=== PATIENT | female | born 1985 | race African-American/Black ===

== ENCOUNTER 2025-03-05 10:28 | Outpatient (AMB) | payer OTHER, SELFPAY ==
--- NOTE | 2025-03-05 10:30 | A.OFFPC_ITS ---
Vital Signs 03/05/25 10:37 Height 5 ft 4.96 in Weight 156 lb BMI 26.0 BP 127/84 Blood Pressure Location Lt brachial Position Sitting Pulse 71 Pulse Source Pulse Oximeter Temp 98.1 F Temp Source Oral Pulse Oximetry (%) 98 Oxygen Delivery Method Room Air Intake Visit Reasons: [employer]-stomach issue Intake Note: Has had back pain. Also having episodes of nausea. Just finished menstrual cycle Accompanied by: Self / Same As Patient Allergies No Known Allergies Allergy (Verified 03/05/25 10:30) Medication List - Last Reconciled 03/05/25 by Korey Sanchez MD ondansetron 2 mg PO Q6-8H PRN Tobacco use date assessed: 03/05/25 Dental Screening Dental Screen Date: 03/05/25 Did you have a dental visit in the last 12 months?: Yes HPI HPI Comments History of Present Illness Details History of Present Illness The patient is a 39-year-old female presenting to [facility] care and for evaluation of back pain and nausea. Chronic Low Back Pain: The patient reports chronic lower back pain for the last six months to a year, occurring at least twice a week. She describes the pain as an aching sensation that sometimes radiates to one leg, feeling like a cramp. She has no history of specific injury but sits at a desk frequently. Stretching provides some relief, and she does not take any medication for the pain. She speculates her large breasts may contribute to the pain. Nausea: The patient experiences occasional nausea, which she denies is related to . She attributes the nausea to her irregular diet and drinking alcohol on an empty stomach to help her sleep. Right Flank Lump: She has a lump on her right flank that has been present for approximately a year and a half. One urgent care provider suggested it was a type of rib, while anot her recommended an ultrasound. Left Elbow Pain: The patient has a history of a left elbow fracture some years ago. She reports she did not complete physical therapy and continues to feel that the elbow is weak and occasionally painful. Insomnia and Alcohol Use: The patient reports difficulty sleeping and uses alcohol as a sleep aid to fall asleep more quickly. She states she drinks to wind down and is trying to cut back on her alcohol consumption. Surgical History: - No surgical history reported. Medications: - The patient is not currently taking an y prescribed medications. 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 - Housing: Lives in an apartment in [facility] and is saving money to move into a house. - Family Status: Has one 16-year-old son . - Substance Use: Smokes marijuana occasi onally since she was a teenager. Denies cigarette smoking. Drinks alcohol to help her fall asleep and is trying to cut back. Denies other illicit drug use. - Nutrition: Reports an 'off and on' t, preferring vegetables and meat over starches. Sometimes skips meals due to her work schedule. - Exercise: Currently does not have a fo rmal exercise routine but tries to stretch for her back pain and expresses a desire to become more active. Family History: - Mother is as of 2021 from [facility]. - No known family history of cancer. Past Medical History - Left elbow fracture several years ago, with incomplete physical therapy. - Hospitalization for childbirth. Health Maintenance - The patient is establishing care and u ndergoing a complete physical examination. - Pap smear is up to date. - Discussed desire to improve health by becoming more active, working out, and reducing alcohol intake. COUNTS INCLUDE 234 BEDS AT THE [facility] Family History (Updated 03/05/25 @ 10:37 by Amarilys Barboza CMA) Mother No problems noted. Father No problems noted. Social History (Updated 03/05/25 @ 10:32 by Amarilys Barboza [facility]) Housing: Apartment Alcohol intake: current Patient Tobacco Use Status: Never used Tobacco e-Cigarette/Vaping Use: Never Used service: No Current occupational status: employed Cognitive needs: No Hearing needs: No Vision needs: No Questionnaire PHQ-9 Over the last 2 weeks, how often have you been bothered by any of the following problems? 1. Little interest or pleasure in doing things: several days 2. Feeling down, depressed, or hopeless: not at all 3. Trouble falling or staying asleep, or sleeping too much: several days 4. Feeling tired or having little energy: several days 5. Poor appetite or overeating: not at all 6. Feeling bad about yourself - or that you are a failure or have let yourself or your family down: not at all 7. Trouble concentrating on things, such as reading the newspaper or watching television: not at all 8. Moving or speaking so slowly that other people could have noticed. Or the opposite - being so fidgety or restless that you have been moving around a lot more than usual: not at all 9. Thoughts that you would be better off or of hurting yourself in some way: not at all Total score: 3 Depression Screening Interpretation: Negative Depression Screening Done: Yes Source: Developed by Drs. Justo Duenas, Lily Mcguire, Anival Ken and colleagues, with an educational morgan from [employer]. Thrive Questionnaire Date Thrive assessed: 03/05/25 I am a: Patient What is your living situation today?: I have a steady place to live Within the past 12 months, did the food you bought not last and you didn't have the money to get more?: Often true Within the past 12 months, did you worry whether your food would run out before you got money to buy more?: Never true Do you have trouble paying for medicines?: I choose not to answer this question Do you have trouble getting transportation to medical appointments?: No Do you have trouble paying your heating and electricity bill?: No Do you have trouble taking care of your child, family member or friend?: No Are you currently unemployed and looking for a job?: No Are you interested in more education?: No Please select the resources that you would like help with: Paying for medicine Currently or been in a relationship where the following occur: No concerns reported THRIVE Score: 1 AUDIT C Alcohol Use Questionnaire (AUDIT-C) 1. How often do you have a drink containing alcohol?: Monthly or less 2. How many drinks containing alcohol do you have on a typical day when you are drinking?: 1 or 2 3. How often do you have six or more drinks on one occasion?: Less than monthly Total Score: 2 MARIANNE-7 AMB Questionnaire MARIANNE-7 Date MARIANNE - 7 assessed: 03/05/25 Feeling nervous, anxious, or on edge: 0 = Not at all Not being able to stop or control worryin = Not at all Worrying too much about different things: 0 = Not at all Trouble relaxin = Not at all Being so restless that it is hard to sit still: 0 = Not at all Becoming easily annoyed or irritable: 0 = Not at all Feeling afraid as if something awful might happen: 0 = Not at all Total MARIANNE-7 score (0-4 normal; 5-9 mild; 10-14 moderate; 15-21 severe): 0 Source: Developed by Drs. Justo Duenas, Lily Mcguire, Anival Ken and colleagues, with an educational morgan from [employer]. Review of Systems Narrative Review of Systems - Constitutional: Reports fatigue related to working two jobs. - Gastrointestinal: Reports occasional nausea. Denies reflux. - Musculoskeletal: Reports chronic lower back pain, described as aching and sometimes radiating. Reports a palpable lump on the right flank. Reports left elbow weakness and occasional pain. - Neurological: Denies specific neurological deficits, although back pain sometimes radiates like a cramp. - Genitourinary: Reports regular menses. Denies use of control. Confirms her Pap smear is up to date. - Psychiatric: Reports difficulty sleeping and uses alcohol as a sleep aid. - General: Denies swelling in her legs. 10-point ROS reviewed and negative except as noted in HPI Physical exam (Primary Care) Vital Signs: Last Vital Signs Temp 98.1 F 03/05/25 10:37 Pulse 71 03/05/25 10:37 BP 127/84 03/05/25 10:37 Pulse Ox 98 03/05/25 10:37 Oxygen Delivery Method Room Air 03/05/25 10:37 BMI result Body Mass Index 26.0 Tobacco/Smoking Status: Tobacco use Status Tobacco use date assessed 03/05/25 03/05/25 10:32 Patient Tobacco Use Status Never used Tobacco 03/05/25 10:32 e-Cigarette/Vaping Use Never Used 03/05/25 10:32 PHQ-9: PHQ-9 Score PHQ-9: Total score 3 03/05/25 10:32 Depression Screening Interpretation: Negative Thrive Assessment: Date of Thrive Assessment Date Thrive assessed 03/05/25 03/05/25 10:32 Currently or been in a relationship where the following occur: No concerns reported Narrative Physical Exam General: Well-appearing, in no acute distress. Appears tired due to working two jobs and experiencing chronic back pain and nausea. Vital signs: Within normal limits. HEENT: Normocephalic, atraumatic. PERRLA, EOMI. Conjunctiva clear, sclera anicteric. Oropharynx clear, mucous membranes moist. TMs intact bilaterally. Neck: Supple, no lymphadenopathy, no thyromegaly, no JVD or carotid bruits. Cardiovascular: RRR, normal S1/S2, no murmurs, rubs, or gallops. Peripheral pulses 2+ and symmetric. No edema. Respiratory: Lungs clear to auscultation bilaterally, no wheezes, rales, or rhonchi. Normal effort. Abdomen: Soft, non-tender, non-distended. Normoactive bowel sounds. No hepatosplenomegaly, no masses. Reports occasional nausea, possibly related to diet and alcohol consumption. MSK: Full range of motion, no joint swelling or deformity. Normal gait. Reports chronic low back pain, possibly related to breast size, and weakness in the left elbow due to previous fracture. palpable deformity on right laft flank Skin: Warm, dry, intact. No rashes, lesions, or pallor. Reports a lump on the right flank, present for about a year and a half. Neuro: Alert and oriented x3. Cranial nerves II-XII intact. Strength 5/5 throughout. Sensation intact. Reflexes 2+ symmetric. Normal coordination and gait. Psych: Appropriate mood and affect. Normal judgment and insight. Reports using alcohol to aid sleep and occasional marijuana use. Considering therapy for sleep issues and stress management. Office Procedures Flu Questionnaire Does the patient have a severe egg allergy?: No Does the patient have severe life threatening allergies?: No Does the patient have a fever or illness today?: No Has the patient ever had Guillain-Hadley Syndrome?: No Has the patient ever had any past reaction to a flu shot?: No Immunizations Fluarix [id number] (PF) 45 mcg (15 mcg x 3)/0.5 mL IM syringe Performing Provider: Korey Sanchez MD [place] [facility] [place] [facility] Documented (not given) by: Amarilys Barboza CMA on 03/05/25 10:41 Reason Not Given: Patient Refused Coding Level of Care Code New Pt Level 4 (39232) Add On Problem Visit Only Diagnoses Chronic low back pain with left-sided sciatica M54.42; G89.29 Left elbow pain M25.522 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 Nausea R11.0 Insomnia G47.00 Alcohol use F10.90 Assessment & Plan Assessment & Plan (1) Chronic low back pain with left-sided sciatica: Code(s): M54.42 - Lumbago with sciatica, left side; G89.29 - Other chronic pain Category: Medical (2) Left elbow pain: Code(s): M25.522 - Pain in left elbow Category: Medical (3) 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 Referrals to physical therapy for her back and elbow were reviewed. Recommendations for managing nausea and options for addressing sleep difficulties, including a sleep study and behavioral health referral, were also discussed. Patient was informed and verbally consented to the use of an ambient scribe for clinic note documentation during this visit. Plan 1. Chronic Low Back Pain - Referral will be placed for physical therapy to strengthen the back. - Discussed that if there is no improvement with physical therapy, a breast reduction could be considered as a future option, given the patient's concern that her breasts might be a contributing factor. 2. Nausea - The nausea is likely attributed to diet and alcohol consumption without food. - Recommended dgbv-ilm-xvyfmrb kacey candy for acute symptoms and daily vitamin B6 (pyridoxine). 3. Right Flank Lump - Physical exam reveals a palpable lump that feels like a calcification on the rib or a possible accessory rib. - A chest x-ray will be ordered to further evaluate the anomaly. 4. Left Elbow Pain And Weakness - Given the patient's report of persistent weakness and pain, a referral will be placed for physical therapy to strengthen the left elbow. 5. Health Maintenance And Establishment Of Care - Comprehensive blood work ordered, including CBC, CMP, magnesium, hemoglobin A1c, lipid panel, hepatitis panel, HIV, RPR, TSH, vitamin B12, folate, and vitamin D. - A urinalysis will also be obtained. - Follow-up scheduled in two weeks to review all results. 6. Insomnia And Alcohol Use - The patient was offered options to address her difficulty sleeping and associated alcohol use. - Provided information for a behavioral health referral for therapy, which can be done via telehealth. - Discussed the option of an at-home sleep study to evaluate for an underlying sleep disorder, which the patient will consider. Discussion Notes I conducted a comprehensive physical exam and discussed the plan to establish care. I explained that I will be ordering a full panel of blood work and a urinalysis to get a baseline overview of her health, checking her blood counts, kidney and liver function, electrolytes, cholesterol, thyroid, and vitamin levels. I also ordered a chest x-ray to investigate the palpable lump on her right flank, which feels like a rib anomaly rather than a soft tissue mass. For her chronic low back pain and left elbow weakness, I explained the benefits of physical therapy and placed referrals for both issues. We also briefly discussed that a breast reduction could be a future option for her back pain if other measures fail. For her occasional nausea, I recommended zkoc-pvg-owrxoyi kacey candy and vitamin B6. I addressed her use of alcohol for sleep by offering a referral for behavioral health counseling and discussing the option of a home sleep study to assess for an underlying sleep disorder, which she will consider. We will follow up in two weeks to review the results of her workup. Patient Instructions - Please go to the lab to have your blood drawn and to the imaging center for your chest X-ray. - For nausea, you can try yzsg-xod-wsbwoxj kacey candies and Vitamin B6. - We have placed referrals for physical therapy for your low back and left elbow. Please expect a call from them to schedule an appointment. - We discussed options for your difficulty sleeping, including talking with a therapist or doing a sleep study at home. Please let me know at our next visit if you would like to proceed with the sleep study. - Try to continue your efforts to cut back on alcohol and find time for yourself to rest and recover, as this is important for your overall health. - Please follow up in two weeks to discuss your lab and imaging results. Medical Decision Making The patient is a 39-year-old female establishing primary care, presenting with multiple chronic complaints including low back pain, left elbow weakness, occasional nausea, and a right flank lump, in the context of significant psychosocial stressors including working two jobs and difficulty sleeping. My approach is to first establish a comprehensive health baseline. A broad set of labs and a urinalysis were ordered to screen for common metabolic, hematologic, endocrine, and infectious conditions. A chest X-ray is warranted for the palpable firm mass on the right flank to rule out a bony abnormality, such as an accessory rib, as it is less likely a lipoma on exam. The patient's musculoskeletal complaints are chronic and likely secondary to a combination of overuse, deconditioning, and potentially her large breasts. A referral to physical therapy is the most appropriate initial step for both her back and elbow to improve strength and function. Her nausea appears related to lifestyle and diet, including alcohol use on an empty stomach; thus, conservative management with OTC remedies and dietary counseling is appropriate pending lab results. The patient's self-reported use of alcohol as a sleep aid warrants further exploration; I have offered both behavioral health support and a diagnostic sleep study as options for her to consider, empowering her to take the next step when ready. A follow-up in two weeks is crucial to integrate the diagnostic data and refine the management plan. Total Time Statement 30 min Total time spent caring for the patient today includes pre-visit chart review, documentation, review of laboratory and diagnostic imaging results, medication reconciliation, medically necessary evaluation, counseling on diagnoses, care coordination, ordering appropriate tests and medications, review of tests performed by other providers, reporting test results to the patient, and communication with other healthcare providers. Orders: Orders Influenza [id number] Immunization Today Z23 - Encounter for immunization Complete Blood Count Auto Diff Today Z13.9 - Encounter for screening, unspecified Hepatitis B Surface Antigen Today Z13.9 - Encounter for screening, unspecified Syphilis Screen Today Z13.9 - Encounter for screening, unspecified TSH reflex Free T4 Today Z13.9 - Encounter for screening, unspecified UA CC w/rflx Micro + Cult Today Z13.9 - Encounter for screening, unspecified Lipid Panel Today Z13.9 - Encounter for screening, unspecified Vitamin D 25-OH (D2 and D3) Today Z13.9 - Encounter for screening, unspecified XR chest 2V Today M95.4 - Acquired deformity of chest and rib Comprehensive Met. Panel Today Z13.9 - Encounter for screening, unspecified Hepatitis C Antibody Today Z13.9 - Encounter for screening, unspecified HIV Ab/Ag Today Z13.9 - Encounter for screening, unspecified Vitamin B12 and Folate Today Z13.9 - Encounter for screening, unspecified Hemoglobin A1c Today Z13.9 - Encounter for screening, unspecified Magnesium Today Z13.9 - Encounter for screening, unspecified Hepatitis B Surface Antibody Today Z13.9 - Encounter for screening, unspecified PT Evaluation and Treatment Today G89.29 - Other chronic pain, M25.522 - Pain in left elbow, M54.42 - Lumbago with sciatica, left side
[2025-03-05 10:37] VITALS: BP 127/84; PULSE 71; TEMP 36.7; O2SAT 98; BMI 26.0
--- OUTSIDE RECORDS SUMMARY | 2025-03-05 11:41 | XMS_ITS | Clinical Summary ---
Author Organization [place] [address] [facility] Address [address] [place], [place] [address] [address] Phone Care Team Providers Care Cardboard Inserter Name Role Phone Jane Marie MD Primary Care Provider [phone] Allergies No known active allergies Medications fluconazole (DIFLUCAN) 150 mg tablet Take 1 tab by mouth now. May repeat in 72 hours if still symptomatic . 2 tablet 09/20/2024 Active Surgical History Surgery Date Site/Laterality Comments OTHER SURGICAL HISTORY PROCEDURE: DENIES PREVIOUS SURGERY Medical History Medical History Date Comments Patient denies medical problems DX:Patient denies medical problems Family History Medical History Relation Name Comments No Known Problems Father No Known Problems Mother Breast cancer Neg Hx Colon cancer Neg Hx Ovarian cancer Neg Hx Uterine cancer Neg Hx Relation Name Status Comments Father Alive Mother Alive Social History Tobacco Use Types Packs/Day Years Used Date Smoking Tobacco: Never Smokeless Tobacco: Never Tobacco Cessation:Counseling Given: Not Answered Alcohol Use Standard Drinks/Week Comments Yes 0 (1 standard drink = 0.6 oz pur e alcohol) occas Housing Instability Answer Date Recorde d Are you worried that in the next 2 months you may not have stable housing? No 05/11/2024 Food Access & Nutrition Answer Date Rec orded Do you have access to a vari ety of food including fruits and vegetables? No 05/11/2024 Financial Risk Answer Date Recorded How hard is it for you to pa y for the very basics like food, housing, medical care, and air conditioning / heating? Somewhat hard 05/11/2024 Food Risk Answer Date Recorded Within the past 12 months we worried whether our food would run out before we got money to buy more. Sometimes true 025 Within the past 12 months th e food we bought just didn't last and we didn't have money to get more. Sometimes true 05/11/2024 Living Situation Answer Date Recorded What is your living situation? Unrecognized valu e 05/11/2024 Comments No Sex and Gender Information Value Date Recorded Sex Assigned at Not on file Legal Sex Female 10:30 PM EST Gender Identity Not on file Sexual Orientation Not on file Obstetrics History Para Term AB IAB SAB Ectopic Multiple Livin g Live Births 1 1 1 1 1 Date Outcome GA Total Labor Labor/2nd/3rd Weight Sex Type Anes PTL Farzaneh A1 A5 Name Clin 2008 Term M Vag-S pont Living Last Filed Vital Signs Vital Sign Reading Time Taken Comments Blood Pressure 112/73 09/03/2024 9:24 AM EDT Pulse 83 09/03/2024 9:24 AM EDT Temperature - - Respiratory Rate 12 09/03/2024 9:24 AM EDT Oxygen Saturation - - Inhaled Oxygen Concentration - - Weight 67.6 kg (149 lb) 09/03/2024 9:24 AM EDT Height 160 cm (5' 3 ) 09/03/2024 9:24 AM EDT Body Mass Index 26.39 09/03/2024 9:24 AM EDT Plan of Treatment Health Maintenance Due Date Last Done Comments DTaP,Tdap,and Td Vaccines (1 - Tdap) 2006 Hepatitis B Vaccines (1 of 3 - 19+ 3-dose series) 2006 HPV Vaccines (1 - 3-dose SCD M series) 2014 HIV Screening 02/14/2022 Hepatitis C Screening 02/14/2022 COVID-19 Vaccine (2 - 2024-2 6 season) 2024 12/24/2020 Influenza Vaccine (#1) 2024 Social Influencers of Health Screening 05/11/2025 05/11/2024 Cervical Cancer Screening: HPV 08/07/2026 08/07/2021 RSV Immunization Adult Patie nts (1 - 1-dose 75+ series) 2062 Depression Screening Completed 07/10/2024 HIB Vaccines Aged Out No longer eligi ble based on patient's age to complete this topic Hepatitis A Vaccines Aged Out No long er eligible based on patient's age to complete this topic IPV Vaccines Aged Out No longer eligi ble based on patient's age to complete this topic MMR Vaccines Aged Out No longer eligi ble based on patient's age to complete this topic Meningococcal ACWY Vaccine Aged Out N o longer eligible based on patient's age to complete this topic Meningococcal B Vaccine Aged Out No l onger eligible based on patient's age to complete this topic Pneumococcal Vaccine: Pediat rics (0 to 5 Years) and At-Risk Patients (6 to 49 Years) Aged Out No longer eligi ble based on patient's age to complete this topic RSV Immunization Patients Un kendall 20 months Aged Out No longer eligible b ased on patient's age to complete this topic Varicella Vaccines Aged Out No longer eligible based on patient's age to complete this topic Procedures Procedure Name Priority Date/Time Associated Diagnosis Comments HPV Routine 08/07/2021 from Last 3 Months or Most Recently Relevant to Health Maintenance Results * Cervical Cancer Screening: HPV (08/07/2021) Cervical Cancer Screening: HPV negative,a bstracted Historical Provider HEALTH MAINTENANCE Final Result from Last 3 Months or Most Recently Relevant to Health Maintenance Insurance [facility] Care Teams Cardboard Inserter Relationship Specialty Start Date End Date Jane Marie MD [facility] [place] [address] [id number] PCP - General Internal Medicine 09/03/19
== END 2025-03-05 11:08 | disposition home or self-care (01) ==
PROVIDERS: PCP Student in an Organized Health Care Education/Training Program; Visit Provider Student in an Organized Health Care Education/Training Program
DX: M54.42 Lumbago with sciatica, left side (principal); G89.29 Other chronic pain; M25.522 Pain in left elbow; M95.4 Acquired deformity of chest and rib; R11.0 Nausea; G47.00 Insomnia, unspecified; F10.90 Alcohol use, unspecified, uncomplicated; Z23 Encounter for immunization

== ENCOUNTER 2025-03-05 10:28 | Outpatient (REF) | payer OTHER, SELFPAY ==
[2025-03-05 13:44] LABS: Appearance Urine Turbid; Glucose Urine UA Negative (Negative); PH 5.5 (5.0-9.0); Specific Gravity - Urine 1.025 (1.005-1.025)
[2025-03-05 14:00] LABS: Hematocrit 38.2 % (37.0-47.0); Hemoglobin 12.7 g/dl (12.0-16.0); Imm Gran Abs Auto 0.00 X10*3/uL (0.00-0.03); Imm Gran Pct Auto 0.0 % (0.0-0.4); Lymphocytes Absolute Auto 2.1 X10*3/uL (1.2-4.9); MANUAL DIFF FLAG SCAN; Mean Corpuscular HGB Conc 33.2 g/dl (31.0-35.0); Mean Corpuscular Hemoglobin 33.1 pg (27.0-33.0); Mean Corpuscular Volume 99.5 fL (80.0-98.0); NRBC Abs Auto 0.000 X10*3/uL (0.0-0.012); NRBC Pct Auto 0.0 /100WBC (0.0-0.2); Platelet Count 312 X10*3/uL (160-400); Red Blood Count 3.84 X10*6/uL (4.20-5.50); SCAN SMEAR FLAG 1; White Blood Count 3.4 X10*3/uL (4.8-10.8)
[2025-03-05 14:26] LABS: Alanine Aminotransferase 24 U/L (0-31); Albumin Level 4.8 g/dL (3.5-5.0); Alkaline Phosphatase 52 U/L (39-117); Anion Gap 11 (12-20); Aspartate Amino Transferase 29 U/L (5-31); Blood Urea Nitrogen 16 mg/dL (9-16); Calcium 9.4 mg/dL (8.4-10.2); Carbon Dioxide 25 mmol/L (22-29); Chloride 110 mmol/L (96-108); Cholesterol 224 mg/dL (<200); Estimated Glomerular Filt Rate > 60; HDL Cholesterol 61 mg/dL (>40); Magnesium 1.7 mg/dL (1.6-2.6); Potassium 3.7 mmol/L (3.3-5.1); Sodium 142 mmol/L (135-145); Total Protein 7.6 g/dL (6.5-8.0); Triglycerides 184 mg/dL (<150)
[2025-03-05 14:52] LABS: Folate > 20.0 ng/mL (> or = 4.0); Vitamin B12 643 pg/mL (200-900)
[2025-03-06 03:38] LABS: Syphilis Screen Nonreactive (Nonreactive)
[2025-03-06 04:04] LABS: HBS Num1 > 1000.00 mIU/mL (0-7.99); HBsAGNum1 0.34 S/CO (0.00-0.99); HIV Num 1 0.06 S/CO (0.00-0.99); Hepatitis B Surface Antigen Negative (Negative); ~HepC Num1 0.14 S/CO (0.00-0.79); ~Hepatitis B Surface Antibody REACTIVE (Nonreactive); ~Hepatitis C Antibody Nonreactive (Nonreactive)
[2025-03-10 10:53] LABS: Vitamin D 25-OH, D2 5 ng/mL; Vitamin D 25-OH, D3 11 ng/mL; Vitamin D 25-OH, Total 16 ng/mL (30-100)
== END 2025-03-05 10:29 | disposition home or self-care (01) ==
LOC: HO.HKASLDS 10:28
PROVIDERS: PCP Student in an Organized Health Care Education/Training Program; Visit Provider Student in an Organized Health Care Education/Training Program
DX: Z13.1 Encounter for screening for diabetes mellitus (principal); Z76.89 Persons encountering health services in other specified circumstances; M54.42 Lumbago with sciatica, left side; G89.29 Other chronic pain; M25.522 Pain in left elbow; M95.4 Acquired deformity of chest and rib; R11.0 Nausea; G47.00 Insomnia, unspecified; F10.90 Alcohol use, unspecified, uncomplicated
CPT/HCPCS: 36415; 80053; 80061; 81003; 82306; 82607; 82746; 83036; 83735; 84443; 85025; 86706; 86780; 86803; 87340; 87389; 90471